=== PATIENT | male | born 1995 | race Hispanic/Latino ===

== ENCOUNTER 2021-01-09 22:54 | Emergency (ER) | payer OTHER ==
[~2021-01-09] VITALS: Ht 170.2 cm; Wt 89.7 kg
[2021-01-09] MEDS ORDERED: LISI10TA22 PO (23:23)
[2021-01-10 00:55] LABS: BASO # 0.1 10^3/uL (0.0-0.2); BASO % 0.5 % (0.0-1.0); EOS # 0.1 10^3/uL (0.0-0.5); HEMATOCRIT 43.2 % (42.0-52.0); HEMOGLOBIN 14.2 g/dl (13.5-17.5); LYMPH # 1.3 10^3/uL (1.5-5.0); LYMPH % 9.8 % (24.0-44.0); MEAN CORPUSCULAR HEMOGLOBIN 28.6 pg (27.0-33.0); MEAN CORPUSCULAR HGB CONC 32.9 g/dl (32.0-36.5); MEAN CORPUSCULAR VOLUME 87.1 fl (80.0-96.0); MONO # 0.7 10^3/uL (0.0-0.8); MONO % 5.5 % (2.0-8.0); NEUTROPHILS # 10.8 10^3/uL (1.5-8.5); NEUTROPHILS % 82.7 % (36.0-66.0); PLATELET COUNT, AUTOMATED 258 10^3/uL (150-450); RED BLOOD COUNT 4.96 10^6/uL (4.30-6.10)
[2021-01-10] MEDS ORDERED: GI COCKTAIL 50ML BTL(HYOSCYAMINE/MAALOX/LIDOCAINE VISCOUS)(1:3:1) PO ONE (01:15)
[2021-01-10 01:23] LABS: ALBUMIN 4.2 GM/DL (3.2-5.2); ALT/SGPT 25 U/L (12-78); BILIRUBIN,DIRECT 0.1 MG/DL (0.0-0.2); BILIRUBIN,TOTAL 0.3 MG/DL (0.2-1.0); BLOOD UREA NITROGEN 21 MG/DL (7-18); CALCIUM LEVEL 9.8 MG/DL (8.5-10.1); CARBON DIOXIDE LEVEL 31 MEQ/L (21-32); CHLORIDE LEVEL 106 MEQ/L (98-107); GLOMERULAR FILTRATION RATE > 60.0 (>60); GLUCOSE, FASTING 103 MG/DL (70-100); LIPASE 126 U/L (73-393); POTASSIUM SERUM 4.2 MEQ/L (3.5-5.1); SODIUM LEVEL 139 MEQ/L (136-145); TOTAL PROTEIN 7.8 GM/DL (6.4-8.2)
[2021-01-10 01:49] LABS: CK-MB VALUE MASS 1.6 NG/ML (<3.6); CPK CREATINE PHOSPHOKINASE 281 U/L (39-308); MB/CK RELATIVE INDEX 0.57 (< OR =4); TROPONIN I < 0.02 NG/ML (< 0.10)
[2021-01-10] MEDS ORDERED: PROT1TAB2 PO (01:55)
[2021-01-10] MEDS ORDERED: SUCR1TA PO (01:56)
--- NOTE | 2021-01-10 02:35 | REPVR ---
PROCEDURE INFORMATION: Exam: US Abdomen, Limited; Right Upper Quadrant Exam date and time: 01/10/2021 1:55 AM Age: 25 years old Clinical indication: Abdominal pain; Acute; Additional info: Upper abd pain into back, nausea TECHNIQUE: Imaging protocol: US abdomen. Real time ultrasound with image documentation. Limited exam focused on the right upper quadrant. COMPARISON: CR Abdomen,Flat Plate KUB 01/10/2021 1:04 AM FINDINGS: Liver: The echogenicity of the liver is within normal limits. No liver lesion is identified from the images obtained. The contour of the liver is smooth. Gallbladder: The gallbladder is contracted and there is apparent thickening of the wall of the gallbladder due to its nondistended state. No calculi or masses are identified in the gallbladder. No pericholecystic fluid is noted. No sonographic Velasco's sign was reported by the electroencephalograph technologist. Common bile duct: The common bile duct is normal in caliber and at the level of the nelson hepatis measures 4 mm. Pancreas: The pancreas is not well visualized due to obscuration by gas in the stomach and bowel. Right kidney: The right kidney is normal in appearance and measures 11 cm in length. There is no renal cortical thinning. The renal cortical echogenicity is within normal limits. No renal lesion is seen. There is no hydronephrosis. No obvious stones are seen in the renal collecting system. Intraperitoneal space: No free fluid is seen from the images obtained. IMPRESSION: No sonographic abnormality seen in the right upper quadrant of the abdomen. Electronically signed by: Ricardo Hanna On 01/10/2021 02:35:01 AM
--- NOTE | 2021-01-10 02:36 | REPVR ---
PROCEDURE INFORMATION: Exam: XR Abdomen Exam date and time: 01/10/2021 1:23 AM Age: 25 years old Clinical indication: Abdominal pain; Acute; Additional info: Epigastric pain into back TECHNIQUE: Imaging protocol: XR of the abdomen. Views: Frontal supine view of the abdomen. 1 View. COMPARISON: No relevant prior studies available. FINDINGS: Gastrointestinal tract: There is a moderate amount of stool in the ascending colon and transverse colon. No bowel dilation is noted. Bones/joints: Unremarkable. IMPRESSION: Moderate amount of stool in the ascending colon and transverse colon. No radiographic evidence for a bowel obstruction. Electronically signed by: Ricardo Hanna On 01/10/2021 02:35:40 AM
[2021-01-10] MEDS ORDERED: SUCRALFATE 1 GM TAB PO ONE (03:20)
[2021-01-10] MEDS ORDERED: PANTOPRAZOLE 40MG TAB (PROTONIX) PO ONE (03:20)
[2021-01-10 03:47] VITALS: BP 133/75
--- NOTE | 2021-01-11 20:00 | ECGEPIP ---
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
== END 2021-01-10 03:48 | disposition home or self-care (01) ==
LOC: M ED 22:54
DX: R10.13 Epigastric pain (principal); R11.0 Nausea; I10 Essential (primary) hypertension; Z88.6 Allergy status to analgesic agent; Z79.899 Other long term (current) drug therapy